=== PATIENT | male | born 1960 | race Caucasian/White ===

== ENCOUNTER 2018-03-18 16:58 | Emergency (ER) | payer BC ==
[~2018-03-18] VITALS: Ht 180.3 cm; Wt 87.0 kg
[2018-03-18 17:02] VITALS: TEMP 36.5; Ht 180.3 cm; Wt 87.0 kg
[2018-03-18] MEDS ORDERED: DIPHTHERIA/TETANUS/PERTUSSIS 0.5 ML SYR/VIAL IM. ONE (17:45)
[2018-03-18] MEDS ORDERED: LIDOCAINE 1% BUFFERED INJ 20 ML VIAL INFIL ONE (17:45)
--- NOTE | 2018-03-18 17:56 | DIAGNOSTIC IMAGING REPORT ---
L FINGER(S) MIN 2 VIEWS ROUTINE CLINICAL HISTORY: distal index finger table saw injury, eval open fx COMPARISON: None FINDINGS: There is irregularity and slight bone loss of the distal tuft of the distal left second finger with a few tiny bone fragments. Overlying soft tissue injury is present. IMPRESSION: Irregularity and slight bone loss consistent with fracture of the distal tuft of the distal phalanx of the left second finger. A few tiny associated bone fragments with soft tissue injury. No radiopaque foreign body. Electronically signed by: Navi Russell M.D. 03/18/2018 5:55 PM Dictated Date/Time: 03/18/2018 5:53 PM
--- NOTE | 2018-03-18 18:38 | EMERGENCY ROOM VISIT NOTE ---
ED Visit Note First contact with patient: 17:24 CHIEF COMPLAINT: Finger laceration HISTORY OF PRESENT ILLNESS: This 57-year-old male patient presents to the emergency department by private vehicle after cutting the left index finger with a table saw around 4:30 PM today. States that he was pushing a piece of wood through and his hand slipped, caught the tip of his finger on the sawblade. Cut went through the tip of his finger and cut off part of his fingernail. The bleeding has not stopped. Denies weakness or numbness of the finger. The patient has full range of motion of the fingers. The patient rates the pain as throbbing and to/10. The patient denies any other injuries. The patient's tetanus shot is not up to date. He is right-hand dominant. REVIEW OF SYSTEMS: A 6 system review of systems was completed with positives and pertinent negatives listed in the HPI. ALLERGIES: No known allergies. MEDICATIONS: No current medications. PMH: No significant past medical or surgical history. SOCIAL HISTORY: Lives at home. He denies tobacco use. PHYSICAL EXAM: Vital Signs: Reviewed Nurse's notes, vital signs stable. GENERAL : Pleasant and cooperative, in no acute distress, well developed, well nourished. SKIN: There is a macerated avulsion of the distal tip of the left index finger, with approximately one third of the distal fingernail absent. Avulsion is 2 cm x 3 cm and does extend into the nailbed. There is no foreign material in the wound and it looks clean. There is minimal bleeding. There is palpable bone in the base of the wound, no tendons or significant blood vessels are seen. Extension and flexion of the finger is full and strong. Full range of motion of the wrist and other fingers. Capillary refill less than 2 seconds. Normal sensation to light and sharp touch. IMAGING: L FINGER(S) MIN 2 VIEWS ROUTINE CLINICAL HISTORY: distal index finger table saw injury, eval open fx COMPARISON: None FINDINGS: There is irregularity and slight bone loss of the distal tuft of the distal left second finger with a few tiny bone fragments. Overlying soft tissue injury is present. IMPRESSION: Irregularity and slight bone loss consistent with fracture of the distal tuft of the distal phalanx of the left second finger. A few tiny associated bone fragments with soft tissue injury. No radiopaque foreign body. EMERGENCY DEPARTMENT COURSE: I examined the patient. An x-ray of the left index finger was performed, consistent with a distal tuft fracture. Patient was given a dose of p.o. Keflex, Rx for Keflex sent to the pharmacy. Verbal consent was obtained to perform the procedure. Using sterile technique the wound was cleansed with Betadine. 4 ml of 1% buffered lidocaine was used to perform a digital block to anesthetize the patient. The area was sterilely draped. Once the patient was anesthetized, the wound was copiously irrigated under pressure with sterile saline. The wound was explored and was as described above. The laceration was repaired using 2 simple interrupted 5-0 Vicryl sutures to repair the exposed nailbed. The patient tolerated the procedure well. Hemostasis was achieved. The area was cleaned with sterile saline and dressed with bacitracin ointment and a wet to dry bandage. The finger was placed in a finger splint. The patient was given a tetanus booster. The patient was educated regarding wound care, close orthopedic follow-up with the hand surgeon, and return precautions should his symptoms worsen, he verbalized understanding. The patient was discharged home in good condition and ambulatory. Current/Historical Medications Scheduled Cephalexin Monohydrate (Keflex), 500 MG PO QID Allergies Coded Allergies: No Known Allergies (Unverified , 03/18/18) Vital Signs Date Time Temp Pulse Resp B/P (MAP) Pulse Ox O2 Delivery O2 Flow Rate FiO2 03/18/18 20:09 66 16 131/92 97 03/18/18 19:04 67 125/82 98 Room Air 03/18/18 17:53 68 14 139/94 97 Room Air 03/18/18 17:02 36.5 81 18 151/88 97 Room Air Medications Administered Medications (Trade) Dose Ordered Sig/Vickie Route Start Time Stop Time Status Last Admin Dose Admin Diphtheria/ Pertussis/Tetanus Vacc (Adacel Inj) 0.5 ml ONCE ONCE IM. 03/18/18 17:45 03/18/18 17:46 DC 03/18/18 17:50 0.5 ML Cephalexin Monohydrate (Keflex Cap) 500 mg NOW ONCE PO 03/18/18 18:45 03/18/18 18:46 DC 03/18/18 19:03 500 MG Departure Information Impression Primary Impression: Fingernail avulsion, partial Additional Impression: Open fracture of distal phalanx of left index finger Dispostion Home / Self-Care Condition GOOD Prescriptions Cephalexin Monohydrate (KEFLEX) 500 Mg Cap 500 MG PO QID for 5 Days, #20 CAP Prov: [place] LeaAydenBrii SHANNON Martinez 03/18/18 Referrals Kristopher Teague M.D.([facility]) (PCP) Ap Siu MD Patient Instructions ED Avulsion Nail Complete, ED Fx Finger Open, [facility] Additional Instructions You have been evaluated and treated in the emergency department today for your finger laceration. You received 2 dissolving sutures to your left index finger. X-ray of your finger shows a probable fracture of your distal phalanx bone. You were prescribed Keflex to be taken 4 times a day for 5 days. This is an antibiotic to help prevent infection in her finger. All antibiotics have the potential to cause diarrhea. Stop this medication and contact a medical provider if you were to develop any significant adverse side effects including: wheezing, shortness of breath, passing out, vomiting, or a diffuse rash. Always take antibiotics as directed and COMPLETE the ENTIRE course regardless of the improvement of your symptoms. Keep the dressing clean and dry and keep the splint in place until you are able to follow-up with the orthopedic hand surgeon. Ice and elevate for swelling and pain. Ibuprofen 600 mg and Tylenol 650 mg every 6 hours as needed for pain. As with all lacerations, there may be temporary or permanent nerve damage or scarring. Keep covered when in sun until sutures removed then SPF 50 or higher for one year. Vitamin E oil if desired two weeks after suture removal for reduction of scar. Please seek immediate medical attention for any signs of infection (increasing redness, severe swelling, increased pain, pus drainage, streaking up the hand/ arm, fever/chills), or for any other concerns. Problem Qualifiers Primary Impression: Fingernail avulsion, partial Encounter type: initial encounter Qualified Codes: S61.309A - Unspecified open wound of unspecified finger with damage to nail, initial encounter Additional Impression: Open fracture of distal phalanx of left index finger Encounter type: initial encounter Fracture alignment: nondisplaced Qualified Codes: S62.661B - Nondisplaced fracture of distal phalanx of left index finger, initial encounter for open fracture
[2018-03-18] MEDS ORDERED: CEPHALEXIN MONOHYDRATE 250 MG CAP PO ONE (18:45)
[2018-03-18] MEDS ORDERED: CEPH500C2 PO (20:04)
[2018-03-18 20:09] VITALS: BP 131/92; PULSE 66; O2SAT 97
== END 2018-03-18 20:10 | disposition home or self-care (01) ==
LOC: EDUNIT# 16:58 → C.EDB 17:00 → C.EDD 20:10
DX: S61.311A Laceration without foreign body of left index finger with damage to nail, initial encounter (principal); S62.661B Nondisplaced fracture of distal phalanx of left index finger, initial encounter for open fracture; W31.2XXA Contact with powered woodworking and forming machines, initial encounter; Z23 Encounter for immunization